=== PATIENT | male | born 1990 ===

== ENCOUNTER 2020-01-23 23:43 | Observation (INO) ==
[2020-01-24] MEDS ORDERED: *HR* Promethazine 25 MG/ML VIAL IVP PRN (01:49)
[2020-01-24] MEDS ORDERED: Naloxone 0.4 MG/ML INJ IVP PRN (01:49)
[2020-01-24] MEDS ORDERED: 0.9 % Sodium Chloride 1,000 ML IVC SCH (02:00)
[2020-01-24 09:21] LABS: Basophils % 0.6 %; Eosinophils # 0.2 K/mcL (0.0-0.6); Eosinophils % 3.7 %; Hematocrit 42.8 % (37.5-50.1); Hemoglobin 14.2 g/dL (12.9-16.9); Immature Granulocytes % 0.2 % (0-4); Lymphocytes % 20.7 %; Mean Corpuscular HGB Conc 33.2 g/dL (31.6-35.5); Mean Corpuscular Volume 84.4 fL (83.0-100.0); Monocytes # 0.3 K/mcL (0.0-1.3); Monocytes % 6.6 %; Neutrophils # 3.3 K/mcL (1.6-8.9); Platelet Count 351 K/mcL (140-400); Red Blood Count 5.07 M/mcL (4.19-5.50); Red Cell Distribution Width 12.3 % (11.5-14.5); Segmented Neutrophils % 68.2 %; White Blood Count 4.8 K/mcL (4.3-11.1)
[2020-01-24 09:38] LABS: Alanine Aminotransferase 14 Units/L (7-52); Albumin 4.3 g/dL (3.5-5.7); Albumin/Globulin Ratio 1.8 (1.1-2.2); Alkaline Phosphatase 53 Units/L (34-104); Aspartate Amino Transferase 15 Units/L (13-39); BUN/Creatinine Ratio 10 (6-26); Bilirubin,Total 0.8 mg/dL (0.3-1.0); Blood Urea Nitrogen 8 mg/dL (6-20); Calcium 9.3 mg/dL (8.6-10.3); Carbon Dioxide 26 mEq/L (23-29); Chloride 106 mEq/L (98-107); Globulin 2.4 g/dL (2.4-3.5); Glucose 118 mg/dL (70-105); Magnesium 1.9 mg/dL (1.6-2.6); Osmolality,Calculated 285 (280-300); Phosphorous 2.8 mg/dL (2.7-4.5); Potassium 3.5 mEq/L (3.5-5.1); Sodium 138 mEq/L (136-145); Total Protein 6.7 g/dL (6.4-8.9); eGFR For African Americans > 60 (> 60); eGFR For Non-African Americans > 60 (> 60)
[2020-01-24] MEDS ORDERED: *HR* LORazepam 2 MG/ML VIAL IVP PRN (15:43)
[2020-01-24] MEDS ORDERED: Haloperidol Lactate 5 MG/ML VIAL IM ONE ×2 (17:12→17:15)
[2020-01-24] MEDS ORDERED: *HR* LORazepam 2 MG/ML VIAL IVP ONE (17:25)
[2020-01-24 19:47] VITALS: BP 128/74
== END 2020-01-24 20:30 ==
LOC: EMEROOARM 23:43 → 3NENU 23:43 → SUATTDRO 01-24 01:05 → 3NENU 01-24 01:29
PROVIDERS: ADMIT Student in an Organized Health Care Education/Training Program; ATTEND Internal Medicine

== ENCOUNTER 2020-01-24 19:52 | Observation (INO) ==
[2020-01-24] MEDS ORDERED: hydrOXYzine pamoate 25 MG CAPSULE PO PRN (20:01)
[2020-01-24] MEDS ORDERED: Mag Hydrox/Al Hydrox/Simeth 30 ML UDC PO PRN (20:01)
[2020-01-24] MEDS ORDERED: *HR* LORazepam 1 MG TABLET PO PRN (20:01)
[2020-01-24] MEDS ORDERED: Haloperidol Lactate 5 MG/ML VIAL IM PRN (20:01)
[2020-01-24] MEDS ORDERED: MOM Conc 10 ML UD.LIQ PO PRN (20:01)
[2020-01-24] MEDS ORDERED: haloperidoL 5 MG TABLET PO PRN (20:01)
[2020-01-24] MEDS ORDERED: *HR* LORazepam 2 MG/ML VIAL IM PRN (20:01)
[2020-01-24] MEDS ORDERED: Ibuprofen 400 MG TABLET PO PRN (20:01)
[2020-01-24] MEDS ORDERED: traZODone 50 MG TABLET PO PRN (20:01)
[2020-01-25 08:53] VITALS: BP 114/72
== END 2020-01-25 13:45 | disposition home or self-care (01) ==
LOC: 1ANU 20:43 → INTOOBSV 20:43
PROVIDERS: ADMIT Psychiatry & Neurology Forensic Psychiatry; ATTEND Psychiatry & Neurology Forensic Psychiatry